=== PATIENT | female | born 1970 | race Hispanic/Latino ===

== ENCOUNTER 2024-07-17 03:42 | Emergency (ER) | payer OTHER ==
[~2024-07-17] VITALS: Ht 160 cm; Wt 38.6 kg
[2024-07-17 04:00] VITALS: PULSE 92; RESP 20; TEMP 92
[2024-07-17] MEDS: DEXAMETHASONE SOD PHOS 10 MG/1 ML VIAL IM ONE (04:14)
[2024-07-17 04:44] LABS: CORONAVIRUS COVID-19 AG NEGATIVE (NEGATIVE); INFLUENZA A AG NEGATIVE (NEGATIVE); INFLUENZA B AG NEGATIVE (NEGATIVE)
[2024-07-17] MEDS ORDERED: AZITHROMYCIN250 MG PO (04:48)
[2024-07-17] MEDS ORDERED: NEO-SYNEPHRINE15 M1 (04:48)
[2024-07-17 04:51] VITALS: BP 163/100; PULSE 90; RESP 15; O2SAT 99
== END 2024-07-17 04:53 | disposition home or self-care (01) ==
LOC: ER 03:55
DX: R09.81 Nasal congestion (principal); J01.90 Acute sinusitis, unspecified
CPT/HCPCS: 83518; 87428; 99283; J1100